=== PATIENT | male | born 1995 | race Caucasian/White ===

== ENCOUNTER 2016-04-26 07:53 | Emergency (ER) | payer BC ==
[~2016-04-26] VITALS: Ht 180.3 cm; Wt 95.5 kg
[2016-04-26] MEDS ORDERED: POLYMYXIN B/TRIMETH OS (08:23)
[2016-04-26] MEDS ORDERED: OCUFLOX OPHTH DR5 ML OD (09:33)
[2016-04-26 10:09] VITALS: BP 140/85; PULSE 94; TEMP 98.2
== END 2016-04-26 10:09 | disposition home or self-care (01) ==
LOC: COL.ER 07:53
DX: H10.11 Acute atopic conjunctivitis, right eye (principal); H10.89 Other conjunctivitis; B99.9 Unspecified infectious disease